=== PATIENT | female | born 1955 | race Caucasian/White ===

== ENCOUNTER 2020-09-06 18:46 | Emergency (ER) | payer OTHER, SELFPAY ==
--- NOTE | ~2020-09-06 | CT_ITS ---
EXAMINATION: CT facial & cervical spine wo DATE: 09/06/2020 19:52 INDICATION: Status post fall. Face and neck pain. TECHNIQUE: Computed tomography (CT) of the maxillofacial region and cervical spine was performed with out intravenous contrast. The dose-length product was 130.41 mGy-cm. Automated exposure control and i terative reconstruction technique were employed. COMPARISON: None FINDINGS: MAXILLOFACIAL CT: There are bilateral nasal fractures. Rightward nasal septal deviation. Mild mucosal thickening right sphenoid sinus. There are degenerative changes of the temporal mandibular joints which is symmetric. No acute mandibular fracture. Orbits within normal limits. Zygomatic arch is intact. Pterygoid plates within normal limits. No significant soft tissue abnormality. CERVICAL SPINE CT: There are posterior spinal fusion changes at C4-5 with associated spinectomy changes. There is degene rative disc disease at C5-6. There are mild uncinate degenerative changes at C4-5, C5-6 and C6-7. The re is emphysema in the lung apices. No acute fracture or traumatic malalignment. Odontoid process wit hin normal limits. IMPRESSION: 1. Bilateral nasal fractures. 2: No acute abnormality of the cervical spine. Reviewed, dictated and finalized at location A.
--- NOTE | ~2020-09-06 | XR_ITS ---
XR knee RT min 4V 09/06/2020 19:51 INDICATION: Right knee pain PROCEDURE: 4 views right knee COMPARISON: 03/16/2015 FINDINGS: Fracture, dislocation or subluxation is not identified. The soft tissues appear within norm al limits. No foreign bodies are identified. IMPRESSION: 1: NO ACUTE BONE OR JOINT ABNORMALITY IDENTIFIED. Reviewed, dictated and finalized at location A.
--- NOTE | ~2020-09-06 | CT_ITS ---
EXAMINATION: CT brain wo con DATE: 09/06/2020 19:36 INDICATION: Status post fall. Trauma to the face. Patient on aspirin. TECHNIQUE: Computed tomography (CT) of the head was performed without intravenous contrast. The dose- length product was 605.33 mGy-cm. Automated exposure control and iterative reconstruction technique w ere employed. COMPARISON: None FINDINGS: No acute intracranial hemorrhage, infarction, mass or mass effect. There are scattered mild periventricular and subcortical white matter changes, most likely related to small vessel ischemic disease (microangiopathy). There is intracranial atherosclerosis. Basilar cist erns are patent. No ventriculomegaly or midline shift. Paranasal sinuses and mastoids are pneumatized . Left nasal fracture partially visualized, age indeterminate. IMPRESSION: 1. No acute intracranial abnormality. Reviewed, dictated and finalized at location A.
[2020-09-06 19:20] VITALS: BP 183/110; PULSE 110; RESP 20; TEMP 36.6; O2SAT 94
--- NOTE | 2020-09-06 20:55 | ED.FALL ---
HPI - Fall General Chief Complaint: Fall Stated Complaint: fall, facial trauma Time Seen by Provider: 09/06/20 20:41 Source: patient Mode of arrival: ambulatory Limitations: no limitations History of Present Illness HPI Narrative: Patient is a 65-year-old female who presents complaining of facial pain. Patient reports she was mopping the floor and her cats were fighting and patient slipped and fell hitting face on one floor. She denies LOC. She denies neck pain headache at this time. She reports dizziness earlier which has resolved. Patient is complaining of pain to her nose. She denies taking [id number] medications prior to arrival. Patient reports placing ice at bridge of nose immediately following accident. Patient denies all other complaints at this time. MD complaint: fall Related Data Allergies Allergy/AdvReac Type Severity Reaction Status Date / Time codeine Allergy Severe Itching Verified 03/16/15 18:16 paroxetine Allergy Severe Nausea Verified 03/16/15 18:16 bupropion Allergy Unknown Confusion Verified 03/16/15 18:16 divalproex sodium Allergy Unknown Dizziness Verified 03/16/15 18:16 gabapentin Allergy Unknown Verified 03/16/15 18:16 imipramine Allergy Unknown Verified 03/16/15 18:16 Review of Systems Review of Systems: Narrative: CONSTITUTIONAL: Denies fever, chills, or sweats. EYES: Denies visual changes, redness, or discharge. ENT: Reports pain to nose CARDIOVASCULAR: Denies chest pain, palpitations, or edema. RESPIRATORY: Denies cough or dyspnea. GASTROINTESTINAL: Denies abdominal pain, nausea, vomiting, or diarrhea. GENITOURINARY: Denies dysuria or hematuria. SKIN: Denies rash or itching. MUSCULOSKELETAL: Denies back pain, joint pain, or myalgia. NEUROLOGIC: Denies headache, numbness, dizziness, or weakness. PSYCHIATRIC: Denies anxiety or depression. [facility] Past Medical History Medical History Breast cancer Left breast mastectomy Chronic fatigue syndrome COPD (chronic obstructive pulmonary disease) Fibromyalgia GERD (gastroesophageal reflux disease) TIA (transient ischemic attack) x 3 Surgical History Surgical History H/O Spinal surgery History of hysterectomy Social History Social History (Updated 09/06/20 @ 20:59 by DANETTE Osman Smoking status: Former smoker Alcohol intake: current Alcohol use details: Occasional Substance use: never Gender identity (if verbalized by the patient): Female Comments At the time of signature, I have reviewed and agree with nursing past medical, surgical, social, and family history unless otherwise noted. Please see nursing chart for further information. There is no relevant family history pertinent to the presenting complaint. Exam Narrative: Exam Narrative: GENERAL: Well-appearing, well-nourished, and in no acute distress. HEAD: Normocephalic, atraumatic. EYES: EOMI. No redness or drainage. Conjunctiva are normal. ENT: Mucous membranes pink and moist. Nares clear. Ecchymosis with small laceration to bridge of nose. TMs normal bilaterally. Throat normal. Uvula midline. NECK: AROM. Supple. No lymphadenopathy. No tenderness with palpation, no step-off CHEST: No respiratory distress. HEART: Regular rate and rhythm. No murmur appreciated. Normal peripheral pulses. EXTREMITIES: Normal range of motion. No edema. SKIN: Warm, dry, no rash. NEURO: No focal deficits. Alert and oriented x3. Gait steady. PSYCH: Normal affect. No signs of depression or anxiety. Course Vital Signs Vital signs: Vital Signs Temperature 36.6 C 09/06/20 19:20 Pulse Rate 110 H 09/06/20 19:20 Respiratory Rate 09/06/20 19:20 Blood Pressure 183/110 H 09/06/20 19:20 Pulse Oximetry 94 09/06/20 19:20 Temperature 36.6 C 09/06/20 19:20 Pulse Rate 110 H 09/06/20 19:20 Respiratory Rate 09/06/20 19:20 Blood Press
[2020-09-06] MEDS: TETANUS,DIPHTHERIA,AC PERTUSSIS ADULT (0.5 ML) BOOSTRIX IM (22:03)
== END 2020-09-06 22:01 | disposition home or self-care (01) ==
PROVIDERS: Emergency Provider Nurse Practitioner
DX: S02.2XXA Fracture of nasal bones, initial encounter for closed fracture (principal); S01.21XA Laceration without foreign body of nose, initial encounter; Z23 Encounter for immunization; J44.9 Chronic obstructive pulmonary disease, unspecified; K21.9 Gastro-esophageal reflux disease without esophagitis; M79.7 Fibromyalgia; Z85.3 Personal history of malignant neoplasm of breast; Z90.12 Acquired absence of left breast and nipple; Z86.73 Personal history of transient ischemic attack (TIA), and cerebral infarction without residual deficits; R03.0 Elevated blood-pressure reading, without diagnosis of hypertension; Z87.891 Personal history of nicotine dependence; W01.0XXA Fall on same level from slipping, tripping and stumbling without subsequent striking against object, initial encounter
CPT/HCPCS: 12011; 70450; 70486; 72125; 73564; 90471; 90715; 99284

== ENCOUNTER 2022-07-16 07:29 | Inpatient (IN) | payer MEDICARE, OTHER, SELFPAY ==
[2022-07-16] VITALS (27 sets, daily range): BP systolic 116–190; BP diastolic 53–92; PULSE 95–144; RESP 16–30; TEMP 36.7–37; O2SAT 83–100; BMI 22.5
--- NOTE | ~2022-07-16 | CT_ITS ---
EXAMINATION: CTA chest PE protocol DATE: 07/17/2022 13:36 INDICATION: Hypoxia TECHNIQUE: Computed tomography angiography (CTA) of the chest was performed with 100 mL Omnipaque-350 intravenous contrast timed to evaluate the pulmonary arteries. Coronal maximum intensity projection 3D-reconstructions were created by the technologist. The dose-length product (DLP) was 178.72 mGy-cm. Automated exposure control and iterative reconstruction technique were employed. COMPARISON: None. FINDINGS: The pulmonary arteries are well-opacified. No pulmonary embolism is identified. There is se rahel emphysema. There are airspace opacities of the lower lobes, right greater than left. No pleural effusion or pneumothorax. The heart size is normal. There is mild right hilar lymphadenopathy, likely reactive. Changes of left mastectomy are noted. There is moderate thoracic spondylosis. IMPRESSION: 1. No pulmonary embolus. 2. Airspace opacities of the lower lobes, right greater than left, consistent with pneumonia. Reviewed, dictated and finalized at location A. IMPRESSION: 1. No pulmonary embolus. 2. Airspace opacities of the lower lobes, right greater than left, consistent w ith pneumonia.
--- NOTE | ~2022-07-16 | XR_ITS ---
EXAMINATION: XR chest 2V DATE: 07/16/2022 08:08 INDICATION: Shortness of breath and hypoxia TECHNIQUE: AP and lateral views of the chest are obtained. COMPARISON: 11/13/2014 FINDINGS: There are airspace opacities of the lung bases, right greater than left. There are small pl eural effusions. No pneumothorax is identified. The cardiomediastinal silhouette is normal. There is moderate thoracic spondylosis. Changes of posterior fusion noted in the lower cervical spine. IMPRESSION: 1. Bibasilar airspace opacities, right greater than left, likely pneumonia. 2. Small pleural effusions. Reviewed, dictated and finalized at location A.
--- NOTE | 2022-07-16 07:37 | ECG_ITS ---
Measurements Intervals [place] Rate: 143 P: 67 SC: 127 QRS: 64 QRSD: 85 T: 62 QT: 292 QTc: 452 Interpretive Statements SINUS TACHYCARDIA BORDERLINE R WAVE PROGRESSION, ANTERIOR LEADS NONSPECIFIC ST & T-WAVE ABNORMALITY- INF/LAT LEADS BASELINE ARTIFACT- I, II, III, AVR, AVL, AVF ABNORMAL ECG NO PREVIOUS ECG AVAILABLE FOR COMPARISON Electronically Signed On 07-16-2022 8:26:45 CDT by Jude Mattson D.O.
--- NOTE | 2022-07-16 07:38 | ED.SOB ---
HPI - SOB/Dyspnea General Chief Complaint: Shortness of Breath/Dyspnea Stated Complaint: SOB, low O2 Time Seen by Provider: 07/16/22 07:37 Source: patient and EMS Mode of arrival: EMS Limitations: no limitations History of Present Illness HPI Narrative: 67 years old white female came to the emergency room by ambulance from home complaining of waking up at 530 this morning with shortness of breath. Patient denies any symptoms when she went to bed last night. History of COPD on 2 L of oxygen for the last 2 weeks. Quit smoking 12 years ago. History of hypertension, hyperlipidemia and TIAs. She denies any fever, chills, nausea, vomiting, chest pain, back pain, coughing or abdominal pain. Related Data Home Medications Medication Instructions Recorded Confirmed clonazepam 0.5 mg tablet 0.5 mg PO BID 09/09/20 07/16/22 cyanocobalamin (vitamin B-12) 100 mcg subcut MONTHLY 09/09/20 07/16/22 1,000 mcg/mL injection solution diphenhydramine HCl 50 mg capsule 50 mg PO DAILY PRN Allergy Symptoms 09/09/20 07/16/22 albuterol sulfate 90 mcg/actuation 90 mcg inhalation Q6H PRN 07/16/22 07/16/22 aerosol inhaler Shortness Of Breath aspirin 325 mg PO DAILY 07/16/22 07/16/22 escitalopram oxalate 20 mg PO DAILY 07/16/22 07/16/22 lisinopril 10 mg tablet 10 mg PO DAILY 07/16/22 07/16/22 simvastatin 40 mg tablet 40 mg PO HS 07/16/22 07/16/22 Allergies Allergy/AdvReac Type Severity Reaction Status Date / Time shellfish derived Allergy Severe Anaphylaxis Verified 07/16/22 11:21 iodine Allergy Intermediate Itching Verified 07/16/22 11:18 imipramine Allergy Mild Itching Verified 07/16/22 11:18 codeine AdvReac Severe Itching Verified 07/16/22 10:10 paroxetine AdvReac Severe Nausea Verified 07/16/22 10:10 gabapentin AdvReac Mild Weakness Verified 07/16/22 11:18 bupropion AdvReac Unknown Confusion Verified 07/16/22 10:10 divalproex sodium AdvReac Unknown Dizziness Verified 07/16/22 10:10 lactose AdvReac Diarrhea Verified 05/20/23 11:21 Review of Systems Review of Systems: All systems reviewed & are unremarkable except as noted in HPI and below PMFSH Past Medical History Medical History (Updated 07/16/22 @ 13:40 by Adamaris Caldwell PA-C) Anxiety Chronic fatigue syndrome Chronic obstructive pulmonary disease Fibromyalgia Gastroesophageal reflux disease History of breast cancer Hyperlipidemia Hypertension Osteoporosis Transient ischemic attack Surgical History Surgical History (Updated 07/16/22 @ 13:38 by Adamaris Caldwell PA-C) History of hysterectomy History of mastectomy History of spinal surgery Family History Family History Father Alcoholism Cancer Heart disease Hypertension Mother Cancer Hypertension Depression Sibling Asthma Grandparent Cerebrovascular accident Diabetes mellitus Grandparent Alcoholism Cancer Social History Social History (Updated 07/16/22 @ 13:39 by Adamaris Caldwell PA-C) Social History: Surrogate medical decision maker: Faheem Clayton, spouse. Code status: Full code. Smoking status: Former smoker Tobacco type: cigarettes Alcohol intake: unknown Alcohol use details: Occasional Substance use: never Lack of Transportation: No Lack of Food: Never True Current Housing: I Have Housing Concerned About Future Housing: No Difficulty Paying Gas/Electric Bills: YES Difficulty Paying for Meds: No Currently Unemployed: No Education: High School Diploma/GED Difficulty w/ Childcare or Family Care: No Additional living arrangements comments: Lives in [place] with spouse. Additional occupation/education comments: Homemaker. Spiritual care concerns: No Exam Narrative: General appearance: Well-developed, well-nourished shaking, Skin: Normal color Head: Normocephalic, nontraumatic Eyes: Clear conjunctiva ENT: Oropharynx normal, ears normal, nose normal Neck: Supple, nontender
[2022-07-16 07:50] LABS: Basophils Percent Auto 0.3 % (0.2-1.2); Eosinophils Absolute Auto 0.1 K/mm3 (0-0.3); Eosinophils Percent Auto 0.6 % (0-4.4); Hematocrit 44.3 % (37.0-47.0); Hemoglobin 14.2 g/dL (12.0-15.0); Immature Granulocyte Absolute 0.02 K/mm3 (0.00-0.031); Immature Granulocyte Percent A 0.2 % (0-0.5); Lymphocytes Percent Auto 13.2 % (18.3-44.2); Mean Corpuscular HGB Conc 32.1 g/dl (32-36); Mean Corpuscular Hemoglobin 31.3 pg (26-34); Mean Corpuscular Volume 97.6 fl (80-100); Mean Platelet Volume 10.4 fl (7.4-10.4); Monocytes Absolute Auto 0.3 K/mm3 (0.1-0.6); Monocytes Percent Auto 3.4 % (2.6-8.5); Neutrophils Absolute Auto 8.1 K/mm3 (1.3-6.7); Neutrophils Percent Auto 82.3 % (45.5-73.1); Platelet Count Result 244 k/mm3 (150-375); Red Blood Count 4.54 M/mm3 (4.2-5.4); Red Cell Distribution Width 13.1 % (11.5-14.5); White Blood Count 9.9 K/mm3 (4.5-10.0)
[2022-07-16 08:05] LABS: Alanine Aminotransferase 27 U/L (6-35); Albumin Level 4.5 g/dL (3.5-5.1); Alkaline Phosphatase 63 U/L (38-126); Anion Gap 10 mmol/L (8-16); Aspartate Amino Transferase 35 U/L (14-36); Bilirubin,Total 0.6 mg/dL (0.2-1.3); Blood Urea Nitrogen 25 mg/dL (7-17); Calcium 8.5 mg/dL (8.4-10.2); Carbon Dioxide 27 mmol/L (22-30); Chloride 108 mmol/L (98-107); Estimated CRCL calculation 53 ml/min; Estimated Glomerular Filt Rate > 60; Glucose 150 mg/dL (65-110); Potassium 3.4 mmol/L (3.4-5.0); Sodium 145 mmol/L (137-145)
[2022-07-16 08:21] LABS: INR 0.9; Prothrombin Time 12.4 Seconds (11.1-14.7)
[2022-07-16 08:22] LABS: Partial Thromboplastin Time 20.3 SECONDS (22.3-36.8)
[2022-07-16 08:26] LABS: Magnesium 1.7 mg/dL (1.6-2.3)
[2022-07-16 08:35] LABS: NT Pro B Type Natriuretic Pept 92 pg/mL (19.9-100)
[2022-07-16 08:36] LABS: Troponin I < 0.012 ng/mL (0.000-0.034)
[2022-07-16 08:40] LABS: Influenza A QL RT-PCR Negative (Negative); Influenza B QL RT-PCR Negative (Negative); RSV RNA, RT-PCR Negative (Negative); SARS-CoV-2 RNA PCR Negative (Negative)
[2022-07-16 08:46] LABS: Lactic Acid Reflex 2.9 mmol/L (0.7-2.0)
[2022-07-16 09:01] LABS: D Dimer 0.85 ug/mL (<0.48)
[2022-07-16 09:54] LABS: Alveolar/Arterial O2 Gradient 186.2 mmHg; Base Excess ABG -3.9 mEq/l (+/-2.0); Fractional Inspired Oxygen 40 %; HCO3 ABG 20.5 mEq/l (22.0-26.0); Oxygen Content ABG 18.2 %vol (16.0-22.0); Oxygen Saturation ABG 90.1 % (95.0-100.0); Oxyhemoglobin 88.9 % THb (90.0-100.0); PCO2 ABG 35.3 mmHg (35.0-45.0); PO2 ABG 58.4 mmHg (80.0-100.0); PO2 FiO2 Ratio Arterial Blood 1.46 %; Total Hemoglobin 14.6 g/dL (12.0-18.0); pH ABG 7.381 (7.350-7.450)
[2022-07-16] MEDS: SODIUM CHLORIDE 0.9% IV 1,000 ML 75 ML IV CONT ×2 (09:57→13:20)
[2022-07-16 09:58] LABS: Modified Allen's Test Pass; Site Drawn RIGHT RADIAL
[2022-07-16 09:59] LABS: Device NASAL CANNULA
[2022-07-16] MEDS: AZITHROMYCIN 500 MG/NS 250 ML 500 MG/250 ML BAG 250 MG IVPB (10:29)
--- NOTE | 2022-07-16 11:08 | PC.NURSE ---
This patient, Opal Clayton, was admitted to Medical Room 261-01. Patient/family oriented to hospital policies and general routines including ID bracelet, bed and alarms, visiting hours, pain management, procedures, bathroom and other care routines, personal items, smoking policy, room service/diet, and visiting hours. Information on how to activate the Rapid Response Team has been discussed. Patient/Family are encouraged to report perceived risks to care and to ask questions if they do not understand what they are told or what they should do.
[2022-07-16 11:33] LABS: Reflex Lactic Acid Yes or No Add Lactic
--- NOTE | 2022-07-16 13:32 | PM.IMHP ---
H&P: HPI History of Present Illness Date/Time: 07/16/22 13:30 Chief Complaint: Shortness of breath. Narrative: This is a 67-year-old female with COPD, sleep apnea intolerant to CPAP, hypertension, hyperlipidemia, GERD, anxiety, and history of breast cancer who presented to the emergency department via EMS from home for evaluation of shortness of breath. She is a former smoker and quit about 12 years ago. Historically she has not been oxygen dependent however she was started on oxygen 2 weeks ago and has been on 2 L nasal cannula 24 hours a day since that time. This morning she woke up feeling extremely short of breath, tremulous, and she was having cold and hot flashes. She was also experiencing pain in her mid to upper back which she is unable to further qualify. She used her albuterol rescue inhaler but it was of no help. She has not been feeling bad up until this morning and she now complains of a nonproductive cough and postnasal drip. She has not had a fever to her knowledge. She denies recent travel and sick contacts. She has not had chest or pleuritic pain. She also denies nausea, vomiting, and diarrhea. She has a history of esophageal stricture requiring dilatation and she does note dysphagia with foods but she has not had issues with that recently she has been cutting her food up into smaller bites. She denies concerns for aspiration. She has not had lower extremity swelling or calf pain. No history of venous thromboembolism. She called emergency services and her spO2 was 83% on 2 L on arrival to the ER. She was afebrile, tachycardic, and tachypneic on arrival. Her labs were significant for a WBC count of 9.9, D-dimer 0.85, lactic acid 2.9, proBNP 92, and a troponin of < 0.012. She was negative for influenza, RSV, and COVID. Chest x-ray showed bibasilar pneumonia and small pleural effusions. In the ED she received 125 mg IV Solu-Medrol, a nebulizer treatment, 1 gm of ceftriaxone, and 500 mg of azithromycin. She is being admitted in this setting for further treatment. Review of Systems Review of Systems: Twelve systems were reviewed and are negative except for as per HPI. [facility] Past Medical History Medical History (Updated 07/16/22 @ 20:39 by Adamaris Caldwell PA-C) Anxiety Chronic fatigue syndrome Chronic obstructive pulmonary disease Chronic respiratory failure with hypoxia, on home oxygen therapy Fibromyalgia Gastroesophageal reflux disease History of breast cancer Status post left mastectomy. History of ovarian cancer Status post hysterectomy. Hyperlipidemia Hypertension Osteoporosis Transient ischemic attack Surgical History Surgical History (Updated 07/16/22 @ 20:27 by Adamaris Caldwell PA-C) History of cervical spinal surgery History of hysterectomy History of left mastectomy Family History Family History Father Alcoholism Cancer Heart disease Hypertension Mother Cancer Hypertension Depression Sibling Asthma Grandparent Cerebrovascular accident Diabetes mellitus Grandparent Alcoholism Cancer Social History Social History (Updated 07/16/22 @ 13:39 by Adamaris Caldwell PA-C) Social History: Surrogate medical decision maker: Faheem Clayton, spouse. Code status: Full code. Smoking status: Former smoker Tobacco type: cigarettes Alcohol intake: unknown Alcohol use details: Occasional Substance use: never Lack of Transportation: No Lack of Food: Never True Current Housing: I Have Housing Concerned About Future Housing: No Difficulty Paying Gas/Electric Bills: YES Difficulty Paying for Meds: No Currently Unemployed: No Education: High School Diploma/GED Difficulty w/ Childcare or Family Care: No Additional living arrangements comments: Lives in [place] with spouse. Additional occupation/education comments: Homemaker. Spiritual care concerns: No Meds Home Medications and All
[2022-07-16 13:48] LABS: Lactic Acid 2.4 mmol/L (0.7-2.0)
[2022-07-16] MEDS: LEVALBUTEROL NEB 1.25 MG/3 ML 0.63 MG INHALATION ×2 (14:58→20:19)
[2022-07-16] MEDS: IPRATROPIUM BR 0.02% INH SOLN 0.5 MG/2.5 ML VIAL INHALATION ×2 (14:59→20:19)
[2022-07-16] MEDS: clonazePAM (*CRX) 0.5 MG TABLET PO (17:42)
[2022-07-16] MEDS: SIMVASTATIN 20 MG TABLET 40 MG PO (20:46)
[2022-07-16] MEDS: IBUPROFEN 400 MG TABLET PO (20:46)
[2022-07-16] MEDS: guaiFENesin 12 HR 600 MG TABCR PO (20:46)
[2022-07-17] VITALS (12 sets, daily range): BP systolic 113–131; BP diastolic 63–69; PULSE 100–110; RESP 16–20; TEMP 36.7–37.2; O2SAT 91–96
[2022-07-17] MEDS: predniSONE 40 MG, predniSONE 10 MG 50 MG PO ×3 (00:27→12:31)
[2022-07-17] MEDS: IPRATROPIUM BR 0.02% INH SOLN 0.5 MG/2.5 ML VIAL INHALATION ×4 (02:14→20:45)
[2022-07-17] MEDS: LEVALBUTEROL NEB 1.25 MG/3 ML 0.63 MG INHALATION ×4 (02:14→20:44)
[2022-07-17 05:00] LABS: Hematocrit 36.8 % (37.0-47.0); Hemoglobin 11.8 g/dL (12.0-15.0); Mean Corpuscular HGB Conc 32.1 g/dl (32-36); Mean Corpuscular Hemoglobin 31.4 pg (26-34); Mean Corpuscular Volume 97.9 fl (80-100); Mean Platelet Volume 10.2 fl (7.4-10.4); Platelet Count Result 192 k/mm3 (150-375); Red Blood Count 3.76 M/mm3 (4.2-5.4); Red Cell Distribution Width 13.3 % (11.5-14.5); White Blood Count 14.4 K/mm3 (4.5-10.0)
[2022-07-17 05:08] LABS: Anion Gap 7 mmol/L (8-16); Blood Urea Nitrogen 19 mg/dL (7-17); Calcium 8.4 mg/dL (8.4-10.2); Carbon Dioxide 23 mmol/L (22-30); Chloride 110 mmol/L (98-107); Estimated CRCL calculation 69 ml/min; Estimated Glomerular Filt Rate > 60; Glucose 144 mg/dL (65-110); Potassium 3.9 mmol/L (3.4-5.0); Sodium 140 mmol/L (137-145)
--- NOTE | 2022-07-17 07:27 | PM.IMPN ---
Progress Note: A&P Assessment and Plan (1) Sepsis: Qualifiers: Sepsis type: sepsis due to unspecified organism Sepsis acute organ dysfunction status: without acute organ dysfunction Qualified Code(s): A41.9 - Sepsis, unspecified organism Code(s): A41.9 - Sepsis, unspecified organism Status: Acute Assessment and Plan: Patient was noted to have tachycardia HR 143, tachypnea RR 30, lactic acid 2.9, and CXR concerning for bibasilar pneumonia. Patient meets sepsis criteria. Continue antibiotics for pneumonia. Monitor hemodynamics. Patient was treated with IV fluids in the ED. Repeat lactic acid 2.4, acute hypoxia may also contribute to elevation. (2) Community acquired pneumonia: Qualifiers: Laterality: right Lung location: lower lobe of lung Qualified Code(s): J18.9 - Pneumonia, unspecified organism Code(s): J18.9 - Pneumonia, unspecified organism Status: Acute Assessment and Plan: The patient presented to the emergency department from home for evaluation of shortness of breath shortly after waking on 07/16/22. Chest x-ray shows findings of bibasilar pneumonia, right greater than left Started on azithromycin and ceftriaxone IV, first dose given 07/16/22. Attempt sputum for culture. urinary antigens and mycoplasma IgM pending. continue supportive care. (3) Acute and chronic respiratory failure with hypoxia: Code(s): J96.21 - Acute and chronic respiratory failure with hypoxia Status: Acute Assessment and Plan: The patient was started on 2 L nasal cannula couple of weeks ago as per HPI. currently on 4 L with an SpO2 in the high 90s. Worsening hypoxia as presumably due to the pneumonia. PE is a consideration as she is tachycardic, a D-dimer is elevated when corrected for age, and given the fact that she had some back pain today when she developed the shortness of breath. She was premedicated with prednisone and benadryl per protocol for iodine allergy. CTA chest negative for PE. Wean oxygen as tolerated to baseline oxygen. Keep sats>90% 07/16/22 ABG - pH 7.38, pCO2 35, pO2 58, HCO3 20, oxyhemoglobin 88.9% on 5L O2. (4) Chronic obstructive pulmonary disease: Qualifiers: COPD type: unspecified COPD Qualified Code(s): J44.9 - Chronic obstructive pulmonary disease, unspecified Code(s): J44.9 - Chronic obstructive pulmonary disease, unspecified Status: Acute Assessment and Plan: No bronchospasm noted on exam thus no indication for steroids at this time. Continue scheduled bronchodilators. She reports that she only uses PRN albuterol MDI, which was recently prescribed with oxygen. She denies maintenance inhalers. No available PFTs (5) Hypertension: Qualifiers: Hypertension type: primary hypertension Qualified Code(s): I10 - Essential (primary) hypertension Code(s): I10 - Essential (primary) hypertension Status: Chronic Assessment and Plan: Blood pressures were reviewed in the been running a bit high, 140s to 160s systolic. Continue antihypertensives and monitor closely. (6) Hyperlipidemia: Qualifiers: Hyperlipidemia type: mixed hyperlipidemia Qualified Code(s): E78.2 - Mixed hyperlipidemia Code(s): E78.5 - Hyperlipidemia, unspecified Status: Chronic Assessment and Plan: Continue simvastatin; LFTs within normal limits. Plan CODE STATUS: FULL CODE Discharge disposition: patient is from home. Antibiotic: Day 2 Diet: heart healthy Estimated LOS: >3 days Time Spent With Patient Time with patient: 25 - 35 minutes Subjective Date/time seen: 07/17/22 07:27 Interval history: She reports feeling a little better today than yesterday. She has a nonproductive cough and still has some back pain but it is improving. No chest pain, palpitations, calf pain, lower extremity edema or paresthesia. Review of
[2022-07-17] MEDS: clonazePAM (*CRX) 0.5 MG TABLET PO ×2 (08:25→17:50)
[2022-07-17] MEDS: ESCITALOPRAM OXALATE 10 MG TABLET 20 MG PO (08:25)
[2022-07-17] MEDS: ASPIRIN 325 MG TABLET PO (08:25)
[2022-07-17] MEDS: lisinopriL 10 MG TABLET PO (08:26)
[2022-07-17] MEDS: guaiFENesin 12 HR 600 MG TABCR PO ×2 (08:26→20:34)
[2022-07-17] MEDS: AZITHROMYCIN 500 MG/NS 250 ML 500 MG/250 ML BAG 250 MG IVPB (10:05)
[2022-07-17] MEDS: ENOXAPARIN 40 MG/0.4 ML SYRINGE SUB-Q (10:06)
[2022-07-17] MEDS: diphenhydrAMINE HCl INJ 50 MG/ML VIAL IV PUSH (12:30)
[2022-07-17] MEDS: SIMVASTATIN 20 MG TABLET 40 MG PO (20:33)
[2022-07-17] MEDS: ACETAMINOPHEN 325 MG TABLET 650 MG PO (20:34)
[2022-07-18] VITALS (11 sets, daily range): BP systolic 133–149; BP diastolic 75–81; PULSE 80–118; RESP 18–20; TEMP 36.6–36.9; O2SAT 82–97
[2022-07-18 05:37] LABS: Basophils Percent Auto 0.1 % (0.2-1.2); Hematocrit 34.2 % (37.0-47.0); Hemoglobin 10.9 g/dL (12.0-15.0); Immature Granulocyte Absolute 0.07 K/mm3 (0.00-0.031); Immature Granulocyte Percent A 0.5 % (0-0.5); Lymphocytes Percent Auto 5.3 % (18.3-44.2); Mean Corpuscular HGB Conc 31.9 g/dl (32-36); Mean Corpuscular Hemoglobin 31.1 pg (26-34); Mean Corpuscular Volume 97.4 fl (80-100); Mean Platelet Volume 10.7 fl (7.4-10.4); Monocytes Absolute Auto 0.8 K/mm3 (0.1-0.6); Monocytes Percent Auto 6.3 % (2.6-8.5); Neutrophils Absolute Auto 11.5 K/mm3 (1.3-6.7); Neutrophils Percent Auto 87.8 % (45.5-73.1); Platelet Count Result 197 k/mm3 (150-375); Red Blood Count 3.51 M/mm3 (4.2-5.4); Red Cell Distribution Width 13.5 % (11.5-14.5); White Blood Count 13.1 K/mm3 (4.5-10.0)
[2022-07-18 06:05] LABS: Anion Gap 6 mmol/L (8-16); Blood Urea Nitrogen 20 mg/dL (7-17); Calcium 8.2 mg/dL (8.4-10.2); Carbon Dioxide 23 mmol/L (22-30); Chloride 111 mmol/L (98-107); Estimated CRCL calculation 69 ml/min; Estimated Glomerular Filt Rate > 60; Glucose 126 mg/dL (65-110); Potassium 3.8 mmol/L (3.4-5.0); Sodium 140 mmol/L (137-145)
[2022-07-18 06:10] LABS: CRP 14.1 mg/dL (<1.0)
[2022-07-18 06:35] LABS: Procalcitonin 2.9 ng/mL
[2022-07-18] MEDS: ASPIRIN 325 MG TABLET PO (08:28)
[2022-07-18] MEDS: lisinopriL 10 MG TABLET PO (08:28)
[2022-07-18] MEDS: ESCITALOPRAM OXALATE 10 MG TABLET 20 MG PO (08:29)
[2022-07-18] MEDS: clonazePAM (*CRX) 0.5 MG TABLET PO ×2 (08:29→16:23)
[2022-07-18] MEDS: guaiFENesin 12 HR 600 MG TABCR PO ×2 (08:29→20:52)
[2022-07-18] MEDS: ENOXAPARIN 40 MG/0.4 ML SYRINGE SUB-Q (08:37)
[2022-07-18] MEDS: AZITHROMYCIN 500 MG/NS 250 ML 500 MG/250 ML BAG 250 MG IVPB (09:06)
--- NOTE | 2022-07-18 09:31 | P.PNIM_ITS ---
Progress Note: A&P Assessment and Plan (1) Sepsis: Qualifiers: Sepsis acute organ dysfunction status: without acute organ dysfunction Sepsis type: sepsis due to unspecified organism Qualified Code(s): A41.9 - S epsis, unspecified organism Code(s): A41.9 - Sepsis, unspecified organism Status: Resolved Assessment and Plan: Patient was noted to have tachycardia HR 143, tachypnea RR 30, lactic acid 2.9, and CXR concerning for bibasilar pneumonia. Patient meets sepsis criteria. * Continue antibiotics for pneumonia. * Monitor hemodynamics. * Patient was treated with IV fluids in the ED. * Repeat lactic acid 2.4, acute hypoxia may also contribute to elevation. * Stable (2) Community acquired pneumonia: Qualifiers: Laterality: right Lung location: lower lobe of lung Qualified Code(s): J18.9 - Pneumonia, unspecified organism Code(s): J18.9 - Pneumonia, unspecified organism Status: Acute Assessment and Plan: The patient presented to the emergency department from home for evaluation of shortness of breath shortly after waking on 07/16/22. * Chest x-ray shows findings of bibasilar pneumonia, right greater than left * Started on azithromycin and ceftriaxone IV, first dose given 07/16- 07/18/22. Transition to oral Levaquin 750 mg p.o. daily, or adjusted per renal function, to complete full 7 day course. First dose 07/19/22. * Attempt sputum for culture. * urinary antigens and mycoplasma IgM pending. * Continue supportive care * Trend CRP, CBC, CRP (3) Acute and chronic respiratory failure with hypoxia: Code(s): J96.21 - Acute and chronic respiratory failure with hypoxia Status: Acute Assessment and Plan: The patient was started on 2 L nasal cannula couple of weeks ago as per HPI. * currently on 4 L with an SpO2 in the high 90s. Worsening hypoxia as presumably due to the pneumonia. * PE is a consideration as she is tachycardic, a D-dimer is elevated when corrected for age, and given the fact that she had some back pain today when she developed the shortness of breath. She was premedicated with prednisone and benadryl per protocol for iodine allergy. CTA chest negative for PE. * Wean oxygen as tolerated to baseline oxygen. Keep sats>90% * 07/16/22 ABG - pH 7.38, pCO2 35, pO2 58, HCO3 20, oxyhemoglobin 88.9% on 5L O2. * Patient has desaturation with activity requiring 3 L. Baseline is 2 L. continue antibiotics and breathing treatments as listed. (4) Chronic obstructive pulmonary disease: Qualifiers: COPD type: unspecified COPD Qualified Code(s): J44.9 - Chronic obstructive pulmonary disease, unspecified Code(s): J44.9 - Chronic obstructive pulmonary disease, unspecified Status: Acute Assessment and Plan: No bronchospasm noted on exam thus no indication for steroids at this time. * Continue bronchodilators. Will trial p.r.n. for shortness of breath or wheezing * She reports that she only uses PRN albuterol MDI, which was recently prescribed with oxygen. * She denies maintenance inhalers. 07/18 start Anoro inhaler once daily * No available PFTs * Continue supplemental oxygen (5) Hypertension: Qualifiers: Hypertension type: primary hypertension Qualified Code(s): I10 - Essential (primary) hypertension Code(s): I10 - Essential (primary) hypertension Status: Chronic Assessment and Plan: Blood pressures were reviewed in the been running a bit high, 140s to 160s systolic. * Continue antihypertensives and monitor closely. (6) Hy
--- NOTE | 2022-07-18 09:31 | PM.IMPN ---
Progress Note: A&P Assessment and Plan (1) Sepsis: Qualifiers: Sepsis acute organ dysfunction status: without acute organ dysfunction Sepsis type: sepsis due to unspecified organism Qualified Code(s): A41.9 - Sepsis, unspecified organism Code(s): A41.9 - Sepsis, unspecified organism Status: Resolved Assessment and Plan: Patient was noted to have tachycardia HR 143, tachypnea RR 30, lactic acid 2.9, and CXR concerning for bibasilar pneumonia. Patient meets sepsis criteria. Continue antibiotics for pneumonia. Monitor hemodynamics. Patient was treated with IV fluids in the ED. Repeat lactic acid 2.4, acute hypoxia may also contribute to elevation. Stable (2) Community acquired pneumonia: Qualifiers: Laterality: right Lung location: lower lobe of lung Qualified Code(s): J18.9 - Pneumonia, unspecified organism Code(s): J18.9 - Pneumonia, unspecified organism Status: Acute Assessment and Plan: The patient presented to the emergency department from home for evaluation of shortness of breath shortly after waking on 07/16/22. Chest x-ray shows findings of bibasilar pneumonia, right greater than left Started on azithromycin and ceftriaxone IV, first dose given 07/16- 07/18/22. Transition to oral Levaquin 750 mg p.o. daily, or adjusted per renal function, to complete full 7 day course. First dose 07/19/22. Attempt sputum for culture. urinary antigens and mycoplasma IgM pending. Continue supportive care Trend CRP, CBC, CRP (3) Acute and chronic respiratory failure with hypoxia: Code(s): J96.21 - Acute and chronic respiratory failure with hypoxia Status: Acute Assessment and Plan: The patient was started on 2 L nasal cannula couple of weeks ago as per HPI. currently on 4 L with an SpO2 in the high 90s. Worsening hypoxia as presumably due to the pneumonia. PE is a consideration as she is tachycardic, a D-dimer is elevated when corrected for age, and given the fact that she had some back pain today when she developed the shortness of breath. She was premedicated with prednisone and benadryl per protocol for iodine allergy. CTA chest negative for PE. Wean oxygen as tolerated to baseline oxygen. Keep sats>90% 07/16/22 ABG - pH 7.38, pCO2 35, pO2 58, HCO3 20, oxyhemoglobin 88.9% on 5L O2. Patient has desaturation with activity requiring 3 L. Baseline is 2 L. continue antibiotics and breathing treatments as listed. (4) Chronic obstructive pulmonary disease: Qualifiers: COPD type: unspecified COPD Qualified Code(s): J44.9 - Chronic obstructive pulmonary disease, unspecified Code(s): J44.9 - Chronic obstructive pulmonary disease, unspecified Status: Acute Assessment and Plan: No bronchospasm noted on exam thus no indication for steroids at this time. Continue bronchodilators. Will trial p.r.n. for shortness of breath or wheezing She reports that she only uses PRN albuterol MDI, which was recently prescribed with oxygen. She denies maintenance inhalers. 07/18 start Anoro inhaler once daily No available PFTs Continue supplemental oxygen (5) Hypertension: Qualifiers: Hypertension type: primary hypertension Qualified Code(s): I10 - Essential (primary) hypertension Code(s): I10 - Essential (primary) hypertension Status: Chronic Assessment and Plan: Blood pressures were reviewed in the been running a bit high, 140s to 160s systolic. Continue antihypertensives and monitor closely. (6) Hyperlipidemia: Qualifiers: Hyperlipidemia type: mixed hyperlipidemia Qualified Code(s): E78.2 - Mixed hyperlipidemia Code(s): E78.5 - Hyperlipidemia, unspecified Status: Chronic Assessment and Plan: Continue simvastatin; LFTs within normal limits. Plan CODE STATUS: FULL CODE Discharge disposition: patient is from home. Antibiotic: Day 3
[2022-07-18] MEDS: LEVALBUTEROL NEB 1.25 MG/3 ML 0.63 MG INHALATION (10:44)
[2022-07-18] MEDS: IPRATROPIUM BR 0.02% INH SOLN 0.5 MG/2.5 ML VIAL INHALATION (10:44)
[2022-07-18] MEDS: predniSONE 20 MG TABLET 40 MG PO (11:24)
[2022-07-18] MEDS: levoFLOXacin 750 MG TABLET PO (16:23)
[2022-07-18] MEDS: ACETAMINOPHEN 325 MG TABLET 650 MG PO (20:51)
[2022-07-18] MEDS: SIMVASTATIN 20 MG TABLET 40 MG PO (20:52)
[2022-07-19 04:47] VITALS: BP 150/82; PULSE 92; RESP 20; TEMP 36.3; O2SAT 97
[2022-07-19 05:39] LABS: Basophils Percent Auto 0.1 % (0.2-1.2); Hematocrit 35.1 % (37.0-47.0); Hemoglobin 11.4 g/dL (12.0-15.0); Immature Granulocyte Absolute 0.07 K/mm3 (0.00-0.031); Immature Granulocyte Percent A 0.7 % (0-0.5); Lymphocytes Absolute Auto 0.95 K/mm3 (0.9-3.2); Lymphocytes Percent Auto 9.1 % (18.3-44.2); Mean Corpuscular HGB Conc 32.5 g/dl (32-36); Mean Corpuscular Hemoglobin 31.2 pg (26-34); Mean Corpuscular Volume 96.2 fl (80-100); Mean Platelet Volume 10.9 fl (7.4-10.4); Monocytes Absolute Auto 0.5 K/mm3 (0.1-0.6); Monocytes Percent Auto 5.2 % (2.6-8.5); Neutrophils Absolute Auto 8.8 K/mm3 (1.3-6.7); Neutrophils Percent Auto 84.9 % (45.5-73.1); Platelet Count Result 217 k/mm3 (150-375); Red Blood Count 3.65 M/mm3 (4.2-5.4); Red Cell Distribution Width 13.2 % (11.5-14.5); White Blood Count 10.4 K/mm3 (4.5-10.0)
[2022-07-19 06:05] LABS: Anion Gap 5 mmol/L (8-16); Blood Urea Nitrogen 18 mg/dL (7-17); CRP 4.7 mg/dL (<1.0); Calcium 8.4 mg/dL (8.4-10.2); Carbon Dioxide 26 mmol/L (22-30); Chloride 110 mmol/L (98-107); Estimated CRCL calculation 69 ml/min; Estimated Glomerular Filt Rate > 60; Glucose 93 mg/dL (65-110); Sodium 141 mmol/L (137-145)
[2022-07-19 06:33] LABS: Procalcitonin 1.4 ng/mL
[2022-07-19 08:04] VITALS: O2SAT 84; O2SAT 94
[2022-07-19] MEDS: predniSONE 20 MG TABLET 40 MG PO (08:25)
[2022-07-19] MEDS: ASPIRIN 325 MG TABLET PO (08:25)
[2022-07-19] MEDS: clonazePAM (*CRX) 0.5 MG TABLET PO (08:25)
[2022-07-19] MEDS: lisinopriL 10 MG TABLET PO (08:25)
[2022-07-19] MEDS: guaiFENesin 12 HR 600 MG TABCR PO (08:25)
[2022-07-19] MEDS: ESCITALOPRAM OXALATE 10 MG TABLET 20 MG PO (08:26)
[2022-07-19] MEDS: ENOXAPARIN 40 MG/0.4 ML SYRINGE SUB-Q (08:26)
[2022-07-19 08:30] VITALS: O2SAT 93
[2022-07-19] MEDS: UMECLIDINIUM/VILANTEROL 62.5-25 MCG ELLIPTA 1 PUFF INHALATION (09:20)
[2022-07-19 09:21] VITALS: O2SAT 93
[2022-07-19] MEDS: levoFLOXacin 750 MG TABLET PO (10:38)
--- NOTE | 2022-07-19 13:39 | PM.DS ---
DS: Admitting Diagnosis Discharge Date 07/19/2022 Admitting Diagnosis Community acquired pneumonia Acute and chronic respiratory failure with hypoxia Chronic obstructive pulmonary disease, unspecified Essential Hypertension DS: Discharge Diagnosis Discharge Diagnosis (1) Sepsis: Qualifiers: Sepsis acute organ dysfunction status: without acute organ dysfunction Sepsis type: sepsis due to unspecified organism Qualified Code(s): A41.9 - Sepsis, unspecified organism Code(s): A41.9 - Sepsis, unspecified organism Status: Resolved Assessment and Plan: Patient was noted to have tachycardia HR 143, tachypnea RR 30, lactic acid 2.9, and CXR concerning for bibasilar pneumonia. Patient meets sepsis criteria. Treated with IV antibiotics for pneumonia as below Monitored hemodynamics. Patient was treated with IV fluids in the ED, but stopped when hemodynamically stable. Repeat lactic acid 2.4, acute hypoxia may also contribute to elevation. Resolved. (2) Community acquired pneumonia: Qualifiers: Laterality: right Lung location: lower lobe of lung Qualified Code(s): J18.9 - Pneumonia, unspecified organism Code(s): J18.9 - Pneumonia, unspecified organism Status: Acute Assessment and Plan: The patient presented to the emergency department from home for evaluation of shortness of breath shortly after waking on 07/16/22. Chest x-ray shows findings of bibasilar pneumonia, right greater than left Treated with azithromycin 500 mg and ceftriaxone 1 gram IV Q24 hours 07/16- 07/18/22. Transitioned to oral Levaquin 750 mg p.o. daily, or adjusted per renal function, to complete full 7 day course. First dose 07/19/22. sputum for culture ordered but could not be obtained due to lack of collectable sputum from patient. urinary antigens and mycoplasma IgM pending at discharge, however, patient did improve clinically on antibiotics. (3) Acute and chronic respiratory failure with hypoxia: Code(s): J96.21 - Acute and chronic respiratory failure with hypoxia Status: Acute Assessment and Plan: The patient was started on 2 L nasal cannula couple of weeks ago as per HPI. Patient requiring up to 4-5 L with an SpO2 in the 90s. Worsening hypoxia as presumably due to the pneumonia. PE is a consideration as she was tachycardic, an elevated D-dimer when corrected for age, and c/o back pain on admission CTA chest ordered to rule out PE. She was premedicated with prednisone and benadryl per protocol for iodine allergy. CTA chest negative for PE. Weaned oxygen as tolerated to baseline oxygen. Keep sats>90% 07/16/22 ABG - pH 7.38, pCO2 35, pO2 58, HCO3 20, oxyhemoglobin 88.9% on 5L O2. Patient noted to have desaturation with activity requiring 3 L and 2 L at rest needed. continued antibiotics and breathing treatments as listed. Improved and stable at discharge. (4) Chronic obstructive pulmonary disease: Qualifiers: COPD type: unspecified COPD Qualified Code(s): J44.9 - Chronic obstructive pulmonary disease, unspecified Code(s): J44.9 - Chronic obstructive pulmonary disease, unspecified Status: Acute Assessment and Plan: No bronchospasm noted on exam thus no indication for steroids at this time. Treated with scheduled bronchodilators Q6 hours until respiratory status improved and then transitioned to p.r.n. for shortness of breath or wheezing She reported that she only uses PRN albuterol MDI, which was recently prescribed with oxygen recently. She denied maintenance inhalers. 07/18 started Anoro inhaler once daily No available PFTs. She reported she was referred for this by her PCP, however, she was hospitalized prior to having it done. Patient initially treated with prednisone premedication for CTA chest d/t contrast allergy and then transitioned to oral prednisone 40 mg daily Continued supplemental oxygen Stable (5) Luis
[2022-07-19 14:00] VITALS: BP 129/60; PULSE 105; RESP 19; TEMP 36.7; O2SAT 96
[2022-07-20 20:47] LABS: Pneumococcal Antigen Urine Not Detected (Not Detected)
[2022-07-21 14:50] LABS: Mycoplasma IgM Antibody Titer 40 U/mL (<770)
[2022-07-22 04:17] LABS: Legionella pneumophila Ag Ur Not Detected (Not Detected)
== END 2022-07-19 16:40 | disposition home or self-care (01) | DRG 871 ==
LOC: ANHED 09:27 → ANH2MED 07-17 13:42
PROVIDERS: Physician Assistant; Admitting Provider Family Medicine; Emergency Provider Emergency Medicine; Visit Provider Nurse Practitioner Family
DX: A41.9 Sepsis, unspecified organism (principal); J18.9 Pneumonia, unspecified organism; J96.21 Acute and chronic respiratory failure with hypoxia; J44.0 Chronic obstructive pulmonary disease with (acute) lower respiratory infection; E78.2 Mixed hyperlipidemia; I10 Essential (primary) hypertension; Z20.822 Contact with and (suspected) exposure to COVID-19; K21.9 Gastro-esophageal reflux disease without esophagitis; G47.30 Sleep apnea, unspecified; M81.0 Age-related osteoporosis without current pathological fracture; M79.7 Fibromyalgia; Z86.73 Personal history of transient ischemic attack (TIA), and cerebral infarction without residual deficits; Z85.3 Personal history of malignant neoplasm of breast; Z87.891 Personal history of nicotine dependence
CPT/HCPCS: 36415; 36600; 71046; 71275; 80048; 80053; 82805; 83605; 83735; 83880; 84145; 84484; 85025; 85027; 85380; 85610; 85730; 86140; 86738; 87040; 87449; 87637; 87899; 93005; 94640; 97161; 97165; 99291; A9270; J0456; J0696; J1200; J1650; J7030; J7512; Q9967